=== PATIENT | female | born 1980 | race Two or more races ===

== ENCOUNTER 2024-02-08 03:58 | Inpatient (IN) | payer MEDICAID ==
[2024-02-08] VITALS (8 sets, daily range): BP systolic 107–131; BP diastolic 48–101; PULSE 120–132; RESP 20–32; TEMP 97.7–99.1; O2SAT 70–97
[~2024-02-08] VITALS: Ht 170.2 cm; Wt 115.4 kg
[2024-02-08] MEDS: thiamine 100mg/ml 2ml inj. IV ONE (04:17)
[2024-02-08 04:43] LABS: BASOPHILS # (AUTO) 0.1 X10'3 (0-0.2); BASOPHILS % (AUTO) 0.6 % (0-1); EOSINOPHILS % (AUTO) 0.1 % (0-6); HEMATOCRIT 25.8 % (35.0-45.0); HEMOGLOBIN 8.7 g/dl (12.0-16.0); LYMPHOCYTES # (AUTO) 1.6 X10'3 (1.1-4.8); LYMPHOCYTES % (AUTO) 6.4 % (21-51); MEAN CORPUSCULAR HEMOGLOBIN 36.7 PG (27.0-31.0); MEAN CORPUSCULAR HGB CONC 33.7 g/dL (33.0-36.5); MEAN CORPUSCULAR VOLUME 108.9 FL (78-98); MEAN PLATELET VOLUME 7.6 FL (7.4-10.4); MONOCYTES # (AUTO) 2.3 X10'3 (0-0.9); MONOCYTES % (AUTO) 9.2 % (2-12); NEUTROPHILS # (AUTO) 20.5 X10'3 (1.8-7.7); NEUTROPHILS % (AUTO) 83.7 % (42-75); PLATELET COUNT 226 X10'3 (140-440); RED BLOOD COUNT 2.37 X10'6 (4.20-5.60); WHITE BLOOD COUNT 24.5 X10'3 (4.5-11.0)
[2024-02-08 04:54] LABS: INR 1.3 INR; PROTHROMBIN TIME 13.3 SECONDS (9.0-12.0)
[2024-02-08 05:12] LABS: ALANINE AMINOTRANSFERASE 21 U/L (12-78); ALBUMIN 1.3 G/DL (3.4-5.0); ALKALINE PHOSPHATASE 467 IU/L (46-116); ANION GAP 8 (8-16); ASPARTATE AMINO TRANSFERASE 130 U/L (10-37); BILIRUBIN,TOTAL 4.9 MG/DL (0.1-1.0); BLOOD UREA NITROGEN 19 MG/DL (7-18); BUN/CREATININE RATIO 15.2 (10.0-20.0); CHLORIDE 94 MMOL/L (99-107); CREATININE 1.25 MG/DL (0.40-0.90); GLUCOSE 150 MG/DL (70-104); POTASSIUM 4.5 MMOL/L (3.5-5.1); SODIUM 129 MMOL/L (135-145); TOTAL CARBON DIOXIDE 26.7 MMOL/L (24-32); eCRCL 58 ML/MIN; eGFR 47 ML/MIN
[2024-02-08 05:13] LABS: ETHANOL < 10 MG/DL (<10); LIPASE 8 U/L (16-77); MAGNESIUM 1.7 MG/DL (1.5-2.4); PRO BRAIN NATRIURETIC PEPTIDE 1044 PG/ML (0-125)
[2024-02-08 05:14] LABS: ALBUMIN/GLOBULIN RATIO 0.3 (1.1-1.5); TOTAL PROTEIN 6.5 G/DL (6.4-8.2)
[2024-02-08] MEDS: LORazepam 2 mg/ml vial IV ONE ×2 (05:20→20:52)
[2024-02-08] MEDS: CefTRIAXone/D5W-Rocephin 1gm 50 ML IV ONE (05:21)
[2024-02-08] MEDS: furosemide 10 MG/1 ML 10ml inj IV ONE ×2 (05:21→08:52)
[2024-02-08] MEDS ORDERED: potassium Cl 20 mEq SR tablet PO PRN ×2 (05:35)
[2024-02-08] MEDS ORDERED: mag hydrox/Alum hydrox/simeth 30ml oral suspension PO PRN (05:35)
[2024-02-08] MEDS ORDERED: magnesium Cl slow-release 64mg tablet PO PRN (05:35)
[2024-02-08] MEDS ORDERED: magnesium 4gm in 100ml NS 100 ML IV PRN (05:35)
[2024-02-08] MEDS ORDERED: ondansetron/PF 4mg/2ml inj IV PRN (05:35)
[2024-02-08] MEDS ORDERED: LORazepam 2 mg/ml vial IV PRN (05:35)
[2024-02-08] MEDS ORDERED: potassium Cl 40MEQ/1/2NS 520ml 520 ML IV PRN (05:35)
[2024-02-08] MEDS ORDERED: magnesium hydroxide 30ml (MOM) UD suspension PO PRN (05:35)
[2024-02-08] MEDS ORDERED: haloperidol 5mg tablet PO PRN (05:35)
[2024-02-08] MEDS ORDERED: cloNIDine 0.1 mg tablet PO PRN (05:35)
[2024-02-08] MEDS ORDERED: dicyclomine 10 MG capsule PO PRN (05:35)
[2024-02-08] MEDS ORDERED: magnesium 2GM in 50ml NS 50 ML IV PRN (05:35)
[2024-02-08] MEDS ORDERED: acetaminophen 325mg tablet PO PRN (05:35)
[2024-02-08] MEDS: PERFLUTREN PROTEIN-A MICROSPHR (Optison) 0.22 MG/ML 3ML VIAL IV ONE (05:45)
[2024-02-08] MEDS: albumin (human) 25% 100 ML IV solution IV ONE (05:55)
[2024-02-08] MEDS: cyanocobalamin 1,000 mcg/ml inj IM ONE (07:33)
[2024-02-08] MEDS: pantoprazole 40mg Tablet.DR PO SCH (07:33)
[2024-02-08] MEDS: thiamine 100mg/ml 2ml inj. IV SCH (07:34)
[2024-02-08] MEDS: furosemide 40mg/4ml inj IV SCH (07:43)
[2024-02-08] MEDS ORDERED: rocuronium 10mg/ml inj IV ONE (08:00)
[2024-02-08] MEDS: nicotine 21mg patch - 24 hr TD SCH (08:00)
[2024-02-08] MEDS: lactose-reduced food (Ensure Enlive) - 237ml bottle PO SCH (08:00)
[2024-02-08] MEDS: K and/or MAG REPLACEMENT MC SCH (08:00)
[2024-02-08] MEDS: folic acid 1mg/0.2ml inj IV SCH (08:49)
[2024-02-08] MEDS: multivitamins, therapeutics tablet PO SCH (08:50)
[2024-02-08] MEDS: metolazone 2.5mg tablet PO SCH (08:53)
[2024-02-08] MEDS: oseltamivir phos 75mg capsule PO SCH (08:55)
[2024-02-08] MEDS: docusate sod 100mg capsule PO SCH (08:56)
[2024-02-08] MEDS: HYDROmorphone 1 mg/ml syringe IV PRN (09:02)
[2024-02-08 09:44] LABS: URINE HCG NEGATIVE (NEG)
[2024-02-08 09:47] LABS: BILIRUBIN,URINE MODERATE (Neg); CLARITY,URINE SLIGHTLY CLOUDY (Clear); GLUCOSE, URINE NEGATIVE (Neg); KETONES,URINE NEGATIVE (Neg); LEUKOCYTE ESTERASE ,URINE TRACE (Neg); NITRITES, URINE POSITIVE (Neg); OCCULT BLOOD,URINE NEGATIVE (Neg); PH,URINE 5.5 (4.8-8.0); PROTEIN,URINE NEGATIVE (Neg); UROBILINOGEN,URINE 0.2 E.U/dL (0.2-1.0)
[2024-02-08 09:48] LABS: COLOR,URINE DARK YELLOW (Yellow); UA COLLECTION TYPE NON-SPECIFIED
[2024-02-08 09:49] LABS: HEMOGLOBIN A1C 7.2 % (4.5-6.2)
[2024-02-08 09:53] LABS: BACTERIA,URINE 4+ /HPF (Neg); MUCUS STRANDS NONE SEEN /LPF (Neg); RBC,URINE 0-2 /HPF (0-2); SQUAMOUS EPITHELIAL CELL,UR MODERATE /LPF (FEW); WBC CLUMPS,URINE FEW /HPF (NEGATIVE)
[2024-02-08 10:09] LABS: URINE AMPHETAMINE SCREEN POSITIVE (Neg); URINE BARBITUATE SCREEN NEGATIVE (Neg); URINE BENZODIAZEPINES SCREEN NEGATIVE (Neg); URINE CANNABINOID SCREEN NEGATIVE (Neg); URINE COCAINE SCREEN NEGATIVE (Neg); URINE METHADONE SCREEN NEGATIVE (Neg); URINE OPIATE SCREEN NEGATIVE (Neg); URINE PHENCYCLIDINE SCREEN NEGATIVE (Neg)
[2024-02-08 10:34] LABS: FREE T4 (FREE THYROXINE) 2.19 NG/DL (0.73-1.40); HDL CHOLESTEROL 21 MG/DL (35-60); LDL CHOLESTEROL 42 MG/DL (50-100)
[2024-02-08 10:36] LABS: CHOLESTEROL 83 MG/DL (0-200); TRIGLYCERIDES 66 MG/DL (20-135)
[2024-02-08] MEDS: LORazepam 2 mg/ml vial IV PRN (10:50)
[2024-02-08] MEDS: haloperidol lactate 5mg/ml inj IM PRN ×2 (13:59→20:16)
[2024-02-08] MEDS ORDERED: ipratropium/albuterol 3ml nebule NEB PRN (16:45)
[2024-02-08 19:59] LABS: ABG BASE EXCESS -0.3 mmol/L (-2.0-2.0); ABG HCO3 23.5 mmol/L (22.0-26.0); ABG OXYGEN SATURATION 94.3 % (94-97); ABG PCO2 (T) 35.2 mmHg (32.0-45.0); ABG PH (T) 7.443 (7.350-7.450); ABG PO2 (T) 72.5 mmHg (75.0-100.0); ALLEN'S TEST POSITIVE; FCOHb 0.4 % (0.0-3.9); FHHb 5.7 % (0.0-5.0); FLOW 30 L/min; FMetHb 0.3 % (0.0-1.5); FO2Hb 93.6 % (94-97); MODE HIGH FLOW; TOTAL HEMOGLOBIN 8.9 G/dl (12.0-16.0)
[2024-02-08] MEDS ORDERED: metolazone 2.5mg tablet PO STA (20:15)
[2024-02-08] MEDS: furosemide 40mg/4ml inj IV ONE (20:38)
[2024-02-08 20:55] LABS: ALANINE AMINOTRANSFERASE 16 U/L (12-78); ALBUMIN 1.7 G/DL (3.4-5.0); ALKALINE PHOSPHATASE 422 IU/L (46-116); ANION GAP 9 (8-16); ASPARTATE AMINO TRANSFERASE 117 U/L (10-37); BILIRUBIN,TOTAL 5.5 MG/DL (0.1-1.0); BLOOD UREA NITROGEN 20 MG/DL (7-18); BUN/CREATININE RATIO 15.5 (10.0-20.0); CALCIUM 7.9 MG/DL (8.5-10.1); CHLORIDE 93 MMOL/L (99-107); CREATININE 1.29 MG/DL (0.40-0.90); GLUCOSE 117 MG/DL (70-104); POTASSIUM 3.8 MMOL/L (3.5-5.1); SODIUM 128 MMOL/L (135-145); TOTAL CARBON DIOXIDE 25.9 MMOL/L (24-32); eCRCL 56 ML/MIN; eGFR 46 ML/MIN
[2024-02-08 21:16] LABS: ALBUMIN/GLOBULIN RATIO 0.4 (1.1-1.5); TOTAL PROTEIN 5.9 G/DL (6.4-8.2)
[2024-02-09] VITALS (22 sets, daily range): BP systolic 42–119; BP diastolic 29–68; PULSE 97–129; RESP 7–39; TEMP 98.5; O2SAT 60–91
[2024-02-09 00:08] LABS: ABG BASE EXCESS -3.1 mmol/L (-2.0-2.0); ABG OXYGEN SATURATION 87.4 % (94-97); ABG PCO2 (T) 60.3 mmHg (32.0-45.0); ABG PH (T) 7.232 (7.350-7.450); ABG PO2 (T) 65.7 mmHg (75.0-100.0); ALLEN'S TEST POSITIVE; FCOHb 0.3 % (0.0-3.9); FHHb 12.5 % (0.0-5.0); FMetHb 0.3 % (0.0-1.5); FO2Hb 86.9 % (94-97); MODE bipap; PATIENT TEMPERATURE 36.4; RESPIRATORY RATE 12 b/min; TOTAL HEMOGLOBIN 9.5 G/dl (12.0-16.0)
[2024-02-09] MEDS: NORepinephrine 8mg/ 250ml NS 250 ML IV ONE (04:07)
[2024-02-09 04:16] LABS: ABG BASE EXCESS -11.7 mmol/L (-2.0-2.0); ABG HCO3 19.1 mmol/L (22.0-26.0); ABG OXYGEN SATURATION 68.8 % (94-97); ABG PCO2 (T) 75.4 mmHg (32.0-45.0); ABG PH (T) 7.021 (7.350-7.450); ABG PO2 (T) 55.1 mmHg (75.0-100.0); ALLEN'S TEST Modified; FHHb 31.2 % (0.0-5.0); FO2Hb 68.8 % (94-97); MODE VENT - prvc; PEEP 10 cm H2O; RESPIRATORY RATE 16 b/min; TIDAL VOLUME 500 mL; TOTAL HEMOGLOBIN 8.6 G/dl (12.0-16.0)
[2024-02-09] MEDS ORDERED: sodium phosphate inj. 30 MMOL in dextrose 5%-water 250 ML IV PRN (04:50)
[2024-02-09] MEDS ORDERED: magnesium 2GM in 50ml NS 50 ML IV PRN (04:50)
[2024-02-09] MEDS ORDERED: magnesium Cl slow-release 64mg tablet PO PRN (04:50)
[2024-02-09] MEDS ORDERED: Neutra Phos packet PO PRN (04:50)
[2024-02-09] MEDS ORDERED: sodium phosphate inj. 15 MMOL in dextrose 5%-water 250 ML IV PRN (04:50)
[2024-02-09] MEDS ORDERED: magnesium 4gm in 100ml NS 100 ML IV PRN (04:50)
[2024-02-09] MEDS ORDERED: potassium Cl 20 mEq SR tablet PO PRN ×2 (04:50)
[2024-02-09] MEDS ORDERED: FENTANYL-0.9 % NACL/PF 100 ML IV PRN (04:50)
[2024-02-09] MEDS ORDERED: CISatracurium besylate inj. 100 MG in normal saline 100ml IV soln 90 ML IV SCH (05:00)
[2024-02-09] MEDS: furosemide 10 MG/1 ML 10ml inj IV ONE ×3 (05:08→10:25)
[2024-02-09] MEDS: NORepinephrine 8mg/ 250ml NS 250 ML IV SCH ×2 (05:08→07:03)
[2024-02-09] MEDS ORDERED: magnesium hydroxide 30ml (MOM) UD suspension PO PRN (05:10)
[2024-02-09] MEDS ORDERED: morphine 2 MG/ML inj. syringe IV PRN (05:10)
[2024-02-09] MEDS ORDERED: morphine 4 MG/ML inj SYRINge IV PRN (05:10)
[2024-02-09] MEDS ORDERED: ondansetron/PF 4mg/2ml inj IV PRN (05:10)
[2024-02-09] MEDS ORDERED: acetaminophen 325mg tablet PO PRN ×2 (05:10)
[2024-02-09] MEDS: LidoCAINE 2% Topical Jelly 11mL syringe (UROJET) TOP ONE ×2 (05:11→05:32)
[2024-02-09 05:12] LABS: OXYGEN SATURATION (MIXED VEN) 60.6 % (60-80); PO2 MIXED VENOUS (TEMP COR) 46.2 mmHg (35-46)
[2024-02-09] MEDS: FENTANYL-0.9 % NACL/PF 100 ML IV PRN (05:20)
[2024-02-09 05:24] LABS: ABG BASE EXCESS -11.7 mmol/L (-2.0-2.0); ABG HCO3 17.9 mmol/L (22.0-26.0); ABG OXYGEN SATURATION 83.1 % (94-97); ABG PCO2 (T) 59.1 mmHg (32.0-45.0); ABG PH (T) 7.096 (7.350-7.450); ABG PO2 (T) 63.9 mmHg (75.0-100.0); ALLEN'S TEST Modified; FCOHb 0.2 % (0.0-3.9); FHHb 16.9 % (0.0-5.0); FO2Hb 82.9 % (94-97); MODE VENT - prvc; PATIENT TEMPERATURE 36.4; PEEP 16 cm H2O; RESPIRATORY RATE 24 b/min; TIDAL VOLUME 500 mL; TOTAL HEMOGLOBIN 9.2 G/dl (12.0-16.0)
[2024-02-09] MEDS: rocuronium 10mg/ml inj IV ONE ×2 (05:45→06:41)
[2024-02-09 05:49] LABS: BASOPHILS # (AUTO) 0.2 X10'3 (0-0.2); BASOPHILS % (AUTO) 0.6 % (0-1); EOSINOPHILS # (AUTO) 0.1 X10'3 (0-0.9); EOSINOPHILS % (AUTO) 0.2 % (0-6); HEMATOCRIT 25.5 % (35.0-45.0); HEMOGLOBIN 7.9 g/dl (12.0-16.0); LYMPHOCYTES % (AUTO) 11.2 % (21-51); MEAN CORPUSCULAR HEMOGLOBIN 35.6 PG (27.0-31.0); MEAN CORPUSCULAR HGB CONC 31.1 g/dL (33.0-36.5); MEAN CORPUSCULAR VOLUME 114.2 FL (78-98); MEAN PLATELET VOLUME 7.6 FL (7.4-10.4); MONOCYTES # (AUTO) 0.3 X10'3 (0-0.9); NEUTROPHILS # (AUTO) 23.1 X10'3 (1.8-7.7); PLATELET COUNT 237 X10'3 (140-440); RED BLOOD COUNT 2.23 X10'6 (4.20-5.60); RED CELL DISTRIBUTION WIDTH 15.7 % (11.5-14.5)
[2024-02-09] MEDS: propofol 1000mg/100ml bottle 100 ML IV SCH (05:51)
[2024-02-09 06:00] LABS: APTT 53 SECONDS (22-32); INR 1.7 INR; PROTHROMBIN TIME 17.2 SECONDS (9.0-12.0)
[2024-02-09 06:03] LABS: ALANINE AMINOTRANSFERASE 18 U/L (12-78); ALBUMIN 1.2 G/DL (3.4-5.0); ALKALINE PHOSPHATASE 346 IU/L (46-116); ANION GAP 16 (8-16); ASPARTATE AMINO TRANSFERASE 155 U/L (10-37); BILIRUBIN,TOTAL 4.4 MG/DL (0.1-1.0); BLOOD UREA NITROGEN 24 MG/DL (7-18); BUN/CREATININE RATIO 12.3 (10.0-20.0); CALCIUM 7.5 MG/DL (8.5-10.1); CHLORIDE 97 MMOL/L (99-107); CREATININE 1.95 MG/DL (0.40-0.90); GLUCOSE 76 MG/DL (70-104); MAGNESIUM 1.8 MG/DL (1.5-2.4); POTASSIUM 3.7 MMOL/L (3.5-5.1); SODIUM 133 MMOL/L (135-145); TOTAL CARBON DIOXIDE 19.8 MMOL/L (24-32); eCRCL 37 ML/MIN; eGFR 28 ML/MIN
[2024-02-09] MEDS: furosemide inj 100 MG in normal saline 100ml IV soln 90 ML IV SCH (06:07)
[2024-02-09] MEDS: vasopressin inj. 40 UNIT in dextrose 5%-water 50ml 38 ML IV SCH (06:11)
[2024-02-09 06:17] LABS: PHOSPHORUS 6.8 MG/DL (2.3-4.5)
[2024-02-09 06:32] LABS: ALBUMIN/GLOBULIN RATIO 0.3 (1.1-1.5); TOTAL PROTEIN 4.9 G/DL (6.4-8.2); WHITE BLOOD COUNT 26.6 X10'3 (4.5-11.0)
[2024-02-09 06:44] LABS: TRIGLYCERIDES 50 MG/DL (20-135)
[2024-02-09 07:14] LABS: ANISOCYTOSIS 1+; PLATELET ESTIMATE NORMAL; POLYCHROMASIA FEW; TOTAL CELLS COUNTED 100
[2024-02-09] MEDS: ringers solution, lacted 1,000 ML IV SCH (07:33)
[2024-02-09] MEDS: sodium bicarbonate (8.4%) 1 mEq/ml syringe IV ONE (07:45)
[2024-02-09] MEDS ORDERED: acetaminophen 1,000mg/100ml IV 100 ML IV PRN ×2 (07:45)
[2024-02-09] MEDS: sodium bicarbonate (8.4%) 1 mEq/ml syringe ONE (07:55)
[2024-02-09] MEDS ORDERED: hydrocortisone sod succ/PF 250mg/2ml inj. IV SCH (08:00)
[2024-02-09] MEDS ORDERED: heparin, porcine 5000 units/ml vial SQ SCH (08:00)
[2024-02-09] MEDS ORDERED: piperacillin/tazo 3.375gm/50ml 50 ML IV SCH (08:00)
[2024-02-09] MEDS ORDERED: CefTRIAXone/D5W-Rocephin 1gm 50 ML IV SCH (08:00)
[2024-02-09 09:02] LABS: ABG BASE EXCESS -9.6 mmol/L (-2.0-2.0); ABG OXYGEN SATURATION 76.7 % (94-97); ABG PCO2 (T) 55.9 mmHg (32.0-45.0); ABG PO2 (T) 52.4 mmHg (75.0-100.0); FCOHb 0.1 % (0.0-3.9); FHHb 23.3 % (0.0-5.0); FO2Hb 76.6 % (94-97); MODE VENT - PRVC; PEEP 18 cm H2O; RESPIRATORY RATE 32 b/min; TIDAL VOLUME 375 mL; TOTAL HEMOGLOBIN 9.6 G/dl (12.0-16.0)
[2024-02-09] MEDS: oseltamivir phos 75mg capsule PO SCH (09:22)
[2024-02-09] MEDS: azithromycin/NS 500mg/250ml 250 ML IV SCH (09:22)
[2024-02-09] MEDS: CefTRIAXone/D5W-Rocephin 1gm 50 ML IV SCH (09:22)
[2024-02-09] MEDS: calcium chloride 100 MG/1 ML inj IV ONE (09:40)
[2024-02-09] MEDS: NORepinephrine 32 MG in Normal Saline 250ml IV soln IV SCH (10:17)
[2024-02-09] MEDS ORDERED: dextrose 50%-water 50ml dispensing syringe IV PRN ×2 (10:40)
[2024-02-09] MEDS ORDERED: glucagon, human recombinant 1mg kit SUBCUT PRN (10:40)
[2024-02-09] MEDS ORDERED: INSULIN LISPRO 100 UNIT/ML INSULN.PEN MULTI-DOSE SQ SCH (10:40)
[2024-02-09] MEDS ORDERED: DEXTROSE 15 GM of carb/4 tabs (each vial/BOTTLE has 4 tablets) PO PRN ×2 (10:40)
[2024-02-09] MEDS: dextrose 50%-water 50ml dispensing syringe IV ONE (11:12)
[2024-02-09] MEDS: MESSAGE TO PHARMACY PO ONE (11:12)
[2024-02-09 17:57] LABS: HBSAG SCREEN Negative (Negative); HEPATITIS C VIRUS ANTIBODY Non Reactive (Non Reactive)
[2024-02-09] MEDS ORDERED: enoxaparin 40mg/0.4ml syringe SUBCUT SCH (20:00)
[2024-02-09] MEDS ORDERED: insulin glargine (Lantus) pen - multi-dose SQ SCH (21:00)
[2024-02-10] MEDS ORDERED: LORazepam 2 mg/ml vial IV PRN (05:35)
[2024-02-10] MEDS ORDERED: mineral oil/petrolatum ophthal oint EACHEYE SCH (08:00)
[2024-02-12] MEDS ORDERED: LORazepam 2 mg/ml vial IV PRN (05:35)
== END 2024-02-09 15:30 | DRG 720 ==
LOC: ER 03:59 → ED HOLD 06:18 → ORTHO 4S 14:45 → PCU 3S 22:29 → CICU 2S 02-09 04:00
PROVIDERS: ADMIT Internal Medicine Critical Care Medicine; ATTEND Internal Medicine
PROC: 5A09357 Assistance with Respiratory Ventilation, Less than 24 Consecutive Hours, Continuous Positive Airway Pressure (ICD-10-PCS; 2024-02-08)
PROC: 5A0935A Assistance with Respiratory Ventilation, Less than 24 Consecutive Hours, High Flow/Velocity Cannula (ICD-10-PCS; 2024-02-08)
PROC: 03HY32Z Insertion of Monitoring Device into Upper Artery, Percutaneous Approach (ICD-10-PCS; principal; 2024-02-09)
PROC: 5A12012 Performance of Cardiac Output, Single, Manual (ICD-10-PCS; 2024-02-09)
PROC: 5A1935Z Respiratory Ventilation, Less than 24 Consecutive Hours (ICD-10-PCS; 2024-02-09)
PROC: 0BH17EZ Insertion of Endotracheal Airway into Trachea, Via Natural or Artificial Opening (ICD-10-PCS; 2024-02-09)
PROC: 05HY33Z Insertion of Infusion Device into Upper Vein, Percutaneous Approach (ICD-10-PCS; 2024-02-09)
DX: A41.89 Other specified sepsis (principal); J80 Acute respiratory distress syndrome; I46.9 Cardiac arrest, cause unspecified; Z66 Do not resuscitate; R65.21 Severe sepsis with septic shock; J45.909 Unspecified asthma, uncomplicated; F10.10 Alcohol abuse, uncomplicated; D53.9 Nutritional anemia, unspecified; J10.08 Influenza due to other identified influenza virus with other specified pneumonia; J15.9 Unspecified bacterial pneumonia; B97.89 Other viral agents as the cause of diseases classified elsewhere; N17.9 Acute kidney failure, unspecified; E87.70 Fluid overload, unspecified; Z20.822 Contact with and (suspected) exposure to COVID-19; F11.10 Opioid abuse, uncomplicated; Z87.891 Personal history of nicotine dependence; Z51.5 Encounter for palliative care
CPT/HCPCS: 36415; 36600; 71045; 74176; 80053; 80061; 80069; 80305; 80320; 81001; 81025; 82607; 82803; 82810; 82948; 83036; 83605; 83690; 83735; 83880; 84145; 84439; 84443; 84478; 84484; 85007; 85018; 85025; 85610; 85730; 86803; 87040; 87070; 87077; 87081; 87088; 87186; 87340; 87502; 87503; 87522; 87811; 93005; 93306; 93308; 94002; 94660; 94760; 94799; 99291; A4314; A4624; A5200; A6213; A6258; C1751; G0378; J0171; J0456; J0696; J1170; J1630; J1815; J1940; J2060; J2704; J3010; J3411; J3420; J3490; J7030; J7040; J7050; J7060; J7120; P9047